=== PATIENT | male | born 1970 | race Caucasian/White ===

== ENCOUNTER 2020-12-14 13:20 | Emergency (ER) | payer OTHER ==
[~2020-12-14 13:20] MED LIST: ALDACTONE25 MG PO; HYDROCHLOROTHIA25 MG PO; LEXAPRO10 MG PO; OMEPRAZOLE40 MG PO; STRIBILD TABLE1 EACH PO; ZANTAC150 MG PO; ZESTRIL30 MG PO
[2020-12-14] MEDS ORDERED: HYDROCODON-ACE1 EAC4 PO (14:05)
== END 2020-12-14 14:14 | disposition home or self-care (01) ==
LOC: ER1 13:20
DX: S42.322A Displaced transverse fracture of shaft of humerus, left arm, initial encounter for closed fracture (principal); S50.312A Abrasion of left elbow, initial encounter; K21.9 Gastro-esophageal reflux disease without esophagitis; I10 Essential (primary) hypertension; B20 Human immunodeficiency virus [HIV] disease; Z23 Encounter for immunization; Z85.038 Personal history of other malignant neoplasm of large intestine; W17.89XA Other fall from one level to another, initial encounter; Y92.69 Other specified industrial and construction area as the place of occurrence of the external cause; F17.200 Nicotine dependence, unspecified, uncomplicated
CPT/HCPCS: 90471; 90715; 99283